=== PATIENT | male | born 1970 | race Caucasian/White ===

== ENCOUNTER → 2020-05-28 13:21 | Outpatient (BNVA) | payer OTHER, SELFPAY | PROVIDERS: Visit Provider Physician Assistant Medical | DX: I10 Essential (primary) hypertension (principal); R07.9 Chest pain, unspecified | CPT/HCPCS: 99213 ==

== ENCOUNTER → 2022-09-11 15:12 | Outpatient (BNVA) | payer OTHER, SELFPAY | PROVIDERS: Visit Provider Physician Assistant Medical | DX: S16.1XXA Strain of muscle, fascia and tendon at neck level, initial encounter (principal); Y04.2XXA Assault by strike against or bumped into by another person, initial encounter | CPT/HCPCS: 72040; 99203 ==

== ENCOUNTER → 2022-09-14 08:31 | Outpatient (BNVA) | payer OTHER, SELFPAY | PROVIDERS: Visit Provider Internal Medicine | DX: S16.1XXD Strain of muscle, fascia and tendon at neck level, subsequent encounter (principal); X58.XXXD Exposure to other specified factors, subsequent encounter | CPT/HCPCS: 99213 ==

== ENCOUNTER 2024-07-15 20:59 | Emergency (ER) | payer BC, SELFPAY ==
--- NOTE | 2024-07-15 | ECG_ITS ---
Test Reason : CHEST PAIN Blood Pressure : / mmHG Vent. Rate : 069 BPM Atrial Rate : 069 BPM P-R Int : 162 ms QRS Dur : 094 ms QT Int : 422 ms P-R-T Axes : 040 010 034 degrees QTc Int : 452 ms Normal sinus rhythm Normal ECG No previous ECGs available Referred By: Generic ED Physician Electronically Signed By:ALEXANDRU MORRIS MD
[2024-07-15 21:10] VITALS: BP 160/98; PULSE 66; RESP 16; TEMP 36.4; O2SAT 99; BMI 36.1
--- NOTE | 2024-07-15 21:20 | ED_ITS ---
HPI - Chest Pain General Chief Complaint: Chest Pain Stated Complaint: Chest pain Time Seen by Provider: 07/15/24 21:20 Source: patient Mode of arrival: ambulatory Limitations: no limitations History of Present Illness ED Provider: HPI narrative: Patient is 54 years old with history of hypotension no known coronary artery disease comes here for pain in the left side of the neck jaw and left arm started at 17:00 when he was coking lasted about 15-20 minutes with diaphoresis was very uneasy at that time then again around 21:00 patient is started having the pain again just prior to arrival with lasted about same time with cold sweats no pain at this time patient's blood pressure noted to be elevated to 160/98 no shortness a breath patient has never had similar pain in the past Related Data Allergies Allergy/AdvReac Type Severity Reaction Status Date / Time No Known Allergies Allergy Unverified 04/01/20 15:19 Hayfever Allergy Unknown Cough Uncoded 07/15/24 21:13 Review of Systems 2 Review of Systems: Yes all other systems are reviewed and are negative [facility] Past Medical History Medical History (Updated 07/16/24 @ 00:44 by Kamron Kathleen MD) Hypertension Social History Social History Smoked in Last 30 Days: No Use of substances other than those prescribed or required for medical reasons: No Advance Directives: No Advance Directives Information Provided: No Physical Exam 2 Vital Signs: Vital Signs: Last Vital Signs Temp 98.6 F 07/16/24 01:00 Pulse 71 07/16/24 01:00 Resp 16 07/16/24 01:00 BP 131/87 07/16/24 01:00 Pulse Ox 98 07/16/24 01:00 O2 Del Method Room Air 07/16/24 01:00 BMI result Body Mass Index 36.1 Appearance: Alert. Oriented X3. No acute distress. Eyes: No pallor or icterus ENT: Pharynx normal. Oral Mucosa moist Neck: Normal inspection. Neck supple. CVS: Normal heart rate and rhythm. Pulses normal. Respiratory: No respiratory distress. Equal air entry bilateral, no wheezing/rales/rhonchi Abdomen: Soft and nontender. Bowel sounds are present, no mass palpable, no CVA tenderness Skin: Skin warm and dry. Normal skin color. Normal skin turgor. Extremities: No lower extremity edema. No calf tenderness Neuro: Oriented X 3. No motor deficit. No sensory deficit.No cerebellar signs , cranial nerves II-XII intact Medications Administered Discontinued Medications Generic Name Dose Route Start Last Admin Trade Name Yousuf PRN Reason Stop Dose Admin Aspirin 162 mg 07/15/24 21:23 07/15/24 21:53 Aspirin 81 Mg Tab.Chew PO 07/15/24 21:24 162 mg ONCE ONE Administration Nitroglycerin 1 inch 07/15/24 21:23 07/15/24 21:53 Nitroglycerin 2 % Oint 1 Gm Packet TRANSDERMA 07/15/24 21:24 1 inch ONCE ONE Administration Medical Decision Making Medical Decision Making [facility] Narrative: Patient with left arm left side of the neck pain with history of hypertension etiology is not clear 2 sets of cardiac enzymes negative EKG without ischemic changes ACS ruled out in the ER patient advised to take baby aspirin and follow with clinical services assistant for further evaluation including stress test Differential Diagnosis Differential Diagnoses: The differential diagnosis associated with the presentation includes Lab Data [facility] Lab Attestation statement: I reviewed the patient's lab results. 07/15/24 21:46 07/15/24 21:46 Labs: Lab Results 07/15/24 07/16/24 Range/Units 21:46 00:01 WBC 8.4 (4.8-10.8) X10*3/uL RBC 4.39 L (4.60-5.80) X10*6/uL Hgb 14.5 (14.0-18.0) g/dl Hct 39.1 L (42.0-52.0) % MCV 89.1 (80.0-98.0) fL MCH 33.0 (27.0-33.0) pg MCHC 37.1 H (31.0-36.0) g/dl RDW 11.6 (11.0-16.0) % Plt Count 203 (160-400) X10*3/uL MPV 8.7 L (9.4-12.4) fL Absolute Nucleated RBC 0.000 (0.0-0.012) X10*3/uL Nucleated RBC % (auto) 0.0 (0.0-0.2) /100WBC PT 11.2 (10.9-12.4) SEC INR 1.0 (0.9-1.1) APTT 32.2 (26.0-36.8) SEC Sodium 140 (135-145) mmol/L Potassium 3.9 (3.3-5.1) mmol/L Chloride 105 (96-108) mmol/L Carbon Dioxide 24 (22-29) mmol/L Anion Gap 15 (12-20) BUN 21 H (9-16) mg/dL Creatinine 0.97 (0.5-1.4) mg/dL Estim Creat Clear Calc 111.4 Estimated GFR > 60 Random Glucose 122 H (60-115) mg/dL Calcium 9.2 (8.4-10.2) mg/dL Total Bilirubin 0.4 (0.0-1.0) mg/dL AST 27 (5-37) U/L ALT 30 (0-40) U/L Alkaline Phosphatase 84 (39-117) U/L Troponin I High Sens < 2.7 < 2.7 (<3.5-35.0) ng/L Total Protein 7.2 (6.5-8.0) g/dL Albumin 4.2 (3.5-5.0) g/dL Independent Interpretation I performed an independent interpretation of an: EKG Interpretation: Normal sinus rhythm heart rate 69 beats per minute normal intervals normal axis no acute ST-T changes no acute ischemia Discharge Plan Discharge Clinical Impression: Chest pain Patient Disposition: Home, Self-Care Instructions: Chest Pain (ED) Additional Instructions: Cause of your pain in the left side of the neck and left arm is not clear Possible acute coronary syndrome Your cardiac enzymes are negative Follow up with PCP further evaluation including stress test Continue medication for hypertension Report to the ER if recurrence of the pain Take baby aspirin daily Referrals: Angel Salgado MD [Physician] - 1 week Interventions: ED Discharge Assessment Last Done: 07/16/24 01:00 Discharge Date/Time: 07/16/24 01:09 Print Language: German
[2024-07-15 21:21] VITALS: BP 168/95; PULSE 60; RESP 16; TEMP 36.6; O2SAT 97
[2024-07-15 21:53] LABS: Hematocrit 39.1 % (42.0-52.0); Hemoglobin 14.5 g/dl (14.0-18.0); Mean Corpuscular HGB Conc 37.1 g/dl (31.0-36.0); Mean Corpuscular Volume 89.1 fL (80.0-98.0); Mean Platelet Volume 8.7 fL (9.4-12.4); Platelet Count 203 X10*3/uL (160-400); Red Blood Count 4.39 X10*6/uL (4.60-5.80); Red Cell Distribution Width 11.6 % (11.0-16.0); White Blood Count 8.4 X10*3/uL (4.8-10.8)
[2024-07-15] MEDS: Aspirin 81 MG TAB.CHEW 162 MG PO (21:53)
[2024-07-15] MEDS: Nitroglycerin 2 % Oint 1 GM Packet 1 INCH TRANSDERMA (21:53)
--- NOTE | 2024-07-15 21:58 | PC.NURSE ---
Iv placed in left AC 20, medicated per mar, pt change into hospital attire, placed on bed side monitor.
[2024-07-15 22:12] LABS: Alanine Aminotransferase 30 U/L (0-40); Albumin Level 4.2 g/dL (3.5-5.0); Alkaline Phosphatase 84 U/L (39-117); Anion Gap 15 (12-20); Aspartate Amino Transferase 27 U/L (5-37); Bilirubin Total 0.4 mg/dL (0.0-1.0); Blood Urea Nitrogen 21 mg/dL (9-16); Calcium 9.2 mg/dL (8.4-10.2); Carbon Dioxide 24 mmol/L (22-29); Chloride 105 mmol/L (96-108); Creatinine Clr Calc Pharmacy 111.4; Estimated Glomerular Filt Rate > 60; Glucose Random 122 mg/dL (60-115); Potassium 3.9 mmol/L (3.3-5.1); Sodium 140 mmol/L (135-145); Total Protein 7.2 g/dL (6.5-8.0)
[2024-07-15 22:21] LABS: Troponin-I High Sensitivity < 2.7 ng/L (<3.5-35.0)
[2024-07-15 22:28] LABS: Prothrombin Time 11.2 SEC (10.9-12.4)
[2024-07-15 22:30] LABS: Partial Thromboplastin Time 32.2 SEC (26.0-36.8)
[2024-07-16] VITALS: BP 131/87; PULSE 68; RESP 16; TEMP 36.7; O2SAT 97
[2024-07-16 00:27] LABS: Troponin-I High Sensitivity < 2.7 ng/L (<3.5-35.0)
[2024-07-16 01:00] VITALS: BP 131/87; BP 137/75; PULSE 65; PULSE 71; RESP 15; RESP 16; TEMP 36.6; TEMP 37; O2SAT 97; O2SAT 98
== END 2024-07-16 01:09 | disposition home or self-care (01) ==
PROVIDERS: Emergency Provider Internal Medicine; PCP Physician Assistant
DX: R07.89 Other chest pain (principal); M54.2 Cervicalgia; R68.84 Jaw pain; M79.602 Pain in left arm; Z79.899 Other long term (current) drug therapy
CPT/HCPCS: 36415; 80053; 84484; 85027; 85610; 85730; 93005; 99283; 99285

== ENCOUNTER → 2024-07-15 21:05 | Outpatient (BNV) | payer BC, SELFPAY | PROVIDERS: Emergency Provider Internal Medicine; PCP Physician Assistant; Visit Provider Internal Medicine Cardiovascular Disease | DX: R07.9 Chest pain, unspecified (principal) | CPT/HCPCS: 93010 ==

== ENCOUNTER 2024-08-15 16:45 | Emergency (ER) | payer BC, SELFPAY ==
--- NOTE | ~2024-08-15 | CT_ITS ---
CLINICAL HISTORY: CP, NEGRO progressing CT angiography chest with contrast. MIP Postprocessing. Comparison: CR - XR CHEST 2V - 08/15/24 17:26 EST Findings: Thoracic aorta is of normal caliber without dissection or aneurysmal dilatation. No significant ulcerative plaquing. Conventional great vessel anatomy. Central pulmonary arteries are patent. Overall heart size is within normal limits. No enlarged lymph nodes. Lungs are clear. No pleural effusion or pneumothorax. No free fluid or free air within the upper abdomen. No acute fracture. IMPRESSION: Negative CT angiogram of the aorta. This document has been electronically signed by: Dewayne De Jesus MD on 08/15/2024 21:35:40
--- NOTE | ~2024-08-15 | XR_ITS ---
CLINICAL HISTORY: chest pain 2 view chest x-ray Comparison: None Findings: No consolidation or effusion. Heart size is normal. No acute fracture. IMPRESSION: 1. No acute findings. This document has been electronically signed by: Dewayne De Jesus MD on 08/15/2024 17:56:41
--- NOTE | 2024-08-15 16:46 | ECG_ITS ---
Test Reason : chest pain Blood Pressure : */* mmHG Vent. Rate : 78 BPM Atrial Rate : 78 BPM P-R Int : 156 ms QRS Dur : 88 ms QT Int : 384 ms P-R-T Axes : 40 4 34 degrees QTcB Int : 437 ms Normal sinus rhythm Nonspecific ST abnormality Abnormal ECG When compared with ECG of 15-Jul-2024 21:05, No significant change was found Referred By: Jasmyn Nieto Electronically Signed By: NEDRA GUSTAFSON
[2024-08-15 16:54] VITALS: BP 170/93; PULSE 76; RESP 18; TEMP 37; O2SAT 95; BMI 38.3
--- NOTE | 2024-08-15 16:57 | ED_ITS ---
HPI - Chest Pain General Chief Complaint: Chest Pain Stated Complaint: Chest pain Time Seen by Provider: 08/15/24 18:51 Source: patient Limitations: no limitations History of Present Illness ED Provider: Darlene Alatorre PA-C HPI narrative: 54-year-old male with a history of hypertension presents with intermittent chest pain since the end of June. Patient states he will randomly have episodes of severe central chest discomfort, described as ?something is sitting in the middle of my chest?. When patient developed symptoms, he becomes nauseous and diaphoretic. The discomfort is transient, not provoked by exertion. Denies concurrent shortness of breath, new dyspnea with exertion, recent cough or cold symptoms, fever. Denies unilateral calf pain or swelling, hemoptysis, recent surgery, recent travel, any period of recent immobility. Patient states he had a negative cardiac workup new year's Lynn, he has follow up with Cardiology that is pending. Patient also had negative stress tests, he has yet to have a cardiac catheterization. Related Data Allergies Allergy/AdvReac Type Severity Reaction Status Date / Time No Known Allergies Allergy Verified 08/15/24 16:55 Hayfever Allergy Unknown Cough Uncoded 07/15/24 21:13 Review of Systems 2 Review of Systems: Yes all other systems are reviewed and are negative Constitutional: Constitutional: Denies fatigue, Denies fever(s) and Denies headache(s) ENT: Denies headache(s) Cardiovascular: Cardiovascular: Reports chest pain and Denies dyspnea Respiratory: Respiratory: Denies cough and Denies dyspnea Gastrointestinal: Gastrointestinal: Reports nausea and Denies vomiting Integumentary/Breasts: Skin/Breast: Reports other (Diaphoresis) Neurologic: Denies headache(s) Endocrine: Endocrine: Denies fatigue PMFSH Past Medical History Attestation statement: The following information was validated with the patient. Medical History (Updated 08/17/24 @ 00:00 by Background Daemon) Hypertension Social History Social History Smoked in Last 30 Days: No Use of substances other than those prescribed or required for medical reasons: No Advance Directives: No Advance Directives Information Provided: No Physical Exam 2 Vital Signs: Vital Signs: Last Vital Signs Temp 98.1 F 08/16/24 00:17 Pulse 64 08/16/24 00:17 Resp 15 08/16/24 00:17 BP 164/107 H 08/16/24 00:17 Pulse Ox 95 08/16/24 00:17 O2 Del Method Room Air 08/16/24 00:17 BMI result Body Mass Index 38.3 Const: Other: Alert well-appearing Orientation/consciousness: patient oriented x3 Resp: Effort & Inspection: normal respiratory effort Cardio: Other: Normal peripheral perfusion Skin: Other: Warm dry no rash Neuro: General: patient oriented x3, gait normal, no focal motor deficits and CN's II-XI intact bilaterally Psych: Other: Cooperative Course Course Course Narrative: This is a rapid medical exam. Defer additional HPI, ROS, PE to primary provider. 54 yo male with history of HTN here with chest pain since 07/15. Follow up with PCP since ER visit. Intermittent chest pain since then. Will obtain labs, EKG, CXR JER -Dusty Nieto APRN Reevaluation(s) Reevaluation #1: Attending note: I saw the patient and examined the patient. There does not seem to be a family history of early coronary disease. Troponins are flat. My interpretation of his description of his symptoms is that they are not highly consistent with an acute coronary syndrome. I think he may be discharged to follow up as he has been previously referred. Dr. Phoenix Medications Administered Discontinued Medications Generic Name Dose Route Start Last Admin Trade Name Freq PRN Reason Stop Dose Admin Iohexol 70 ml 08/15/24 21:13 08/15/24 21:14 Iohexol 350 Mg/Ml 100 Ml Infus..Btl IV 08/15/24 21:14 70 ml ONCE ONE Administration Medical Decision Making Medical Decision Making [facility] Narrative: 54-year-old male with a history of hypertension presents with intermittent chest pain since the end of June. Patient states he will randomly have episodes of severe central chest discomfort, described as ?something is sitting in the middle of my chest?. When patient developed symptoms, he becomes nauseous and diaphoretic. The discomfort is transient, not provoked by exertion. Denies concurrent shortness of breath, new dyspnea with exertion, recent cough or cold symptoms, fever. Denies unilateral calf pain or swelling, hemoptysis, recent surgery, recent travel, any period of recent immobility. Patient states he had a negative cardiac workup new year's Lynn, he has follow up with Cardiology that is pending. Patient also had negative stress tests, he has yet to have a cardiac catheterization. Problem: Hypertension History: Per patient I have considered the following differential diagnoses: ACS, new heart failure, PE, costochondritis, viral syndrome, pneumonia, anxiety/panic attack, GERD Plan: ACS considered, this is a concerning story. It is reassuring that he had negative stress tests, his 1st troponin is negative, he has some nonspecific changes on the EKG, however unchanged from a month ago. Given that his story is concerning, I am going to obtain an angiogram of the chest with the hope to view the coronary arteries. I do not think this is PE, he has no objective evidence of DVT on exam, he is not hypoxic, the pain is not pleuritic any is not short of breath. Do not think this is new heart failure, he does not appear volume overloaded on exam, again he is not short of breath he is not hypoxic, he has no dyspnea on exertion, chest x-ray clear, adding a BNP. The patient has not had recent cough or cold symptoms to suggest costochondritis/PNA. This also is not consistent with anxiety or panic attack, he has no history of anxiety, his symptoms present randomly. This could be really poorly controlled acid reflux given central discomfort. I have independently reviewed the following tests: Labs: No leukocytosis, not anemic, no electrolyte abnormality, troponin negative x2, BNP 42 EKG 1. Normal sinus rhythm, rate of 78, nonspecific ST abnormality however unchanged from June of 2024, no active ischemic changes, no ectopy, QTC 437 EKG 2. Sinus Tulio, rate of 59, no ischemic changes no ectopy Chest x-ray:Findings: No consolidation or effusion. Heart size is normal. No acute fracture. IMPRESSION: 1. No acute findings. This document has been electronically signed by: Dewayne De Jesus MD on 08/15/2024 17:56:41 CTA chest: Findings: Thoracic aorta is of normal caliber without dissection or aneurysmal dilatation. No significant ulcerative plaquing. Conventional great vessel anatomy. Central pulmonary arteries are patent. Overall heart size is within normal limits. No enlarged lymph nodes. Lungs are clear. No pleural effusion or pneumothorax. No free fluid or free air within the upper abdomen. No acute fracture. IMPRESSION: Negative CT angiogram of the aorta. This document has been electronically signed by: Dewayne De Jesus MD on 08/15/2024 21:35:40 Lab Data 08/15/24 17:18 08/15/24 17:18 Labs: Lab Results 08/15/24 08/15/24 Range/Units 17:18 20:02 WBC 6.6 (4.8-10.8) X10*3/uL RBC 4.29 L (4.60-5.80) X10*6/uL Hgb 14.2 (14.0-18.0) g/dl Hct 38.9 L (42.0-52.0) % MCV 90.7 (80.0-98.0) fL MCH 33.1 H (27.0-33.0) pg MCHC 36.5 H (31.0-36.0) g/dl RDW 12.3 (11.0-16.0) % Plt Count 208 (160-400) X10*3/uL MPV 9.0 L (9.4-12.4) fL Immature Gran % (Auto) 0.3 (0.0-0.4) % Neut % (Auto) 51.5 (45-73) % Lymph % (Auto) 36.3 (20-40) % [place] % (Auto) 8.2 (2-11) % Eos % (Auto) 3.2 (0-4) % Baso % (Auto) 0.5 (0-2) % Lymph # (Auto) 2.4 (1.2-4.9) X10*3/uL [place] # (Auto) 0.5 (0.1-1.2) X10*3/uL Eos # (Auto) 0.2 (0.0-0.4) X10*3/uL Baso # (Auto) 0.0 (0.0-0.2) X10*3/uL Abs Immat Gran (auto) 0.02 (0.00-0.03) X10*3/uL Absolute Neuts (auto) 3.4 (2.0-8.3) x10*3/uL Absolute Nucleated RBC 0.000 (0.0-0.012) X10*3/uL Nucleated RBC % (auto) 0.0 (0.0-0.2) /100WBC PT 11.2 (10.9-12.4) SEC INR 1.0 (0.9-1.1) Sodium 140 (135-145) mmol/L Potassium 3.9 (3.3-5.1) mmol/L Chloride 108 (96-108) mmol/L Carbon Dioxide 21 L (22-29) mmol/L Anion Gap 15 (12-20) BUN 20 H (9-16) mg/dL Creatinine 1.18 (0.5-1.4) mg/dL Estim Creat Clear Calc 94.4 Estimated GFR > 60 Random Glucose 197 H (60-115) mg/dL Calcium 9.2 (8.4-10.2) mg/dL Total Bilirubin 0.3 (0.0-1.0) mg/dL Direct Bilirubin 0.1 (0.0-0.5) mg/dL AST 27 (5-37) U/L ALT 33 (0-40) U/L Alkaline Phosphatase 81 (39-117) U/L Troponin I High Sens < 2.7 < 2.7 (<3.5-35.0) ng/L B-Natriuretic Peptide 42 (<100) pg/mL Total Protein 7.4 (6.5-8.0) g/dL Albumin 4.1 (3.5-5.0) g/dL Discharge Plan Discharge Clinical Impression: Chest pain Patient Disposition: Home, Self-Care Instructions: Chest Pain (ED) Additional Instructions: All of your screening labs including 2 cardiac enzymes were normal. There were no concerning changes on your EKGs and the chest x-ray is clear. The CT angio of the aorta was completely normal. Keep your pending follow up with your ethernet network architect. Interventions: ED Discharge Assessment Last Done: 08/16/24 00:17 Discharge Date/Time: 08/16/24 00:18 Print Language: Khmer
[2024-08-15 17:21] LABS: MANUAL DIFF FLAG NO
[2024-08-15 17:25] LABS: Basophils Percent Auto 0.5 % (0-2); Eosinophils Absolute Auto 0.2 X10*3/uL (0.0-0.4); Eosinophils Percent Auto 3.2 % (0-4); Hematocrit 38.9 % (42.0-52.0); Hemoglobin 14.2 g/dl (14.0-18.0); Imm Gran Abs Auto 0.02 X10*3/uL (0.00-0.03); Imm Gran Pct Auto 0.3 % (0.0-0.4); Lymphocytes Absolute Auto 2.4 X10*3/uL (1.2-4.9); Lymphocytes Percent Auto 36.3 % (20-40); Mean Corpuscular HGB Conc 36.5 g/dl (31.0-36.0); Mean Corpuscular Hemoglobin 33.1 pg (27.0-33.0); Mean Corpuscular Volume 90.7 fL (80.0-98.0); Monocytes Absolute Auto 0.5 X10*3/uL (0.1-1.2); Monocytes Percent Auto 8.2 % (2-11); Neutrophils Absolute Auto 3.4 x10*3/uL (2.0-8.3); Neutrophils Percent Auto 51.5 % (45-73); Platelet Count 208 X10*3/uL (160-400); Red Blood Count 4.29 X10*6/uL (4.60-5.80); Red Cell Distribution Width 12.3 % (11.0-16.0); White Blood Count 6.6 X10*3/uL (4.8-10.8)
[2024-08-15 17:42] LABS: Prothrombin Time 11.2 SEC (10.9-12.4)
[2024-08-15 17:48] LABS: Alanine Aminotransferase 33 U/L (0-40); Albumin Level 4.1 g/dL (3.5-5.0); Alkaline Phosphatase 81 U/L (39-117); Anion Gap 15 (12-20); Aspartate Amino Transferase 27 U/L (5-37); Bilirubin Direct 0.1 mg/dL (0.0-0.5); Bilirubin Total 0.3 mg/dL (0.0-1.0); Blood Urea Nitrogen 20 mg/dL (9-16); Calcium 9.2 mg/dL (8.4-10.2); Carbon Dioxide 21 mmol/L (22-29); Chloride 108 mmol/L (96-108); Creatinine Clr Calc Pharmacy 94.4; Estimated Glomerular Filt Rate > 60; Glucose Random 197 mg/dL (60-115); Potassium 3.9 mmol/L (3.3-5.1); Sodium 140 mmol/L (135-145); Total Protein 7.4 g/dL (6.5-8.0)
[2024-08-15 17:49] LABS: Troponin-I High Sensitivity < 2.7 ng/L (<3.5-35.0)
[2024-08-15 19:18] VITALS: BP 166/98; PULSE 68; RESP 18; TEMP 37.1; O2SAT 96
--- OUTSIDE RECORDS SUMMARY | 2024-08-15 19:25 | XMS_ITS | Continuity of Care Document ---
Author Organization [facility] [employer] Address [address] [place] [address]- Care Team Providers Care Educational Speech Language Clinician Name Role Phone Marisa Yang Primary Care Physician Encounter [facility] [place] [facility] [id number] Date(s): 07/03/24 - 08/02/24 [facility] Adult [address] [place] [address]- Encounter Type: Triage Allergies, Adverse Reactions, Alerts Substance Criticality Severity Reaction Reaction Severity Status Definity 1 Active CARRILLO inhibitors cough Activ e 1Hoarsness/Numbness of lower jaw/Tingling of tongue Immunizations Given and Recorded Vaccine Date Status Refusal Reason SARS-CoV-2 (COVID-19) mRNA BNT-162b2 vac 08/06/20 Recorded SARS-CoV-2 (COVID-19) mRNA BNT-162b2 vac 08/05/20 Recorded SARS-CoV-2 (COVID-19) mRNA BNT-162b2 vac 07/15/20 Recorded SARS-CoV-2 (COVID-19) mRNA-1273 vaccine 07/14/20 R ecorded tetanus-diphtheria toxoids (Td) 07/16/12 Recorded Medications Calcium and magnesium supplement Calcium and magnesium supplement, Refills 0, Maintenance, 05/04/21 12:07:00 PM EDT, Supply Start Date: 05/04/21 Status: Ordered Repeat number: 1 carvedilol 12.5 mg oral tablet 1, tablet, By Mouth, 2 times a day, # 180 tablet, Refills 0, Maintenance, 07/03/24 4:08:00 PM EST, Route to Pharmacy Electronically, [id number], 177.5, cm, 06/11/23 7:49:00 EST, Height Start Date: 07/03/24 Status: Ordered Quantity: 180.0 Unit: tablet Repeat number: 1 Fish Oil By Mouth, 0 Refills, Maintenance, 05/04/21 12:05:00 PM EDT, Partial fill upon patient request if the prescription is for a schedule II opioid drug. Start Date: 05/04/21 Status: Ordered Repeat number: 1 losartan 50 mg oral tablet 1 tablet, By Mouth, Daily, # 90 tablet, 2 Refills, Maintenance, 04/25/24 2:03:00 PM EDT, [id number], 177.5, cm, 06/11/23 7:49:00 EST, Height Start Date: 04/25/24 Status: Ordered Quantity: 90.0 Unit: tablet Repeat number: 1 Multivitamin Daily, 0 Refills, Maintenance, 05/04/21 12:05:00 PM EDT, Partial fill upon patient request if the prescription is for a schedule II opioid drug. Start Date: 05/04/21 Status: Ordered Repeat number: 1 Vitamin D3 oral tablet 1 tablet = 10 mcg, By Mouth, Daily, 0 Refills, Maintenance, 05/04/21 12:06:00 PM EDT, Partial fill upon patient request if the prescription is for a schedule II opioid drug. Start Date: 05/04/21 Status: Ordered Repeat number: 1 Zepbound 2.5 mg/0.5 mL subcutaneous solution = 2.5 mg, Subcutaneous Injection, Every week, rotate injection sites, # 4 each, 0 Refills, Maintenance, 07/21/24 8:21:00 AM EST, Solution, [facility]/pharmacy #[id number], Partial fill upon patient request if the prescription is for a schedule II opioid drug., 177.5, cm, 07/21/24 7:08:00 EST, Height Start Date: 07/21/24 Status: Ordered Quantity: 4.0 Unit: each Repeat number: 1 Problem List Condition Confirmation Course Effective Dates Status Health St atus Informant Hypertension Confirmed Active Palpitations Confirmed Active Severe obesity (BMI 35.0-39.9) with comorbidity Confirmed Active Social History Social History Type Response Smoking Status Never (less than 100 in lifetime);Former smoker, quit more than 30 days ago; Use: Quit 30 years ago; Type: Cigarettes entered on: 01/19/23 Sex Sex Representation Male (finding) Patient Care team information Care Team Personnel Name: Marisa Yang Position: S PCO Associate Professional Member Role: PCP Address: [address] [place] [id number] Telecom: Care Team Related Persons Name: AURELIANO NIEVES Name: SHANE LIN Name: OLINDA HENSON Insurance Providers Guarantor name: MARK ANTHONY [facility] Plan Information #: 1 Payer: HMO [employer] Member Number: NA Policy Number: NA Group Number: NA
[2024-08-15 20:36] LABS: B Type Natriuretic Peptide 42 pg/mL (<100)
[2024-08-15 20:37] LABS: Troponin-I High Sensitivity < 2.7 ng/L (<3.5-35.0)
[2024-08-15 21:06] VITALS: BP 173/113; PULSE 71; RESP 16; TEMP 36.8; O2SAT 98
[2024-08-15] MEDS: iohexoL 350 MG/ML 100 ML INFUS..BTL 70 ML IV (21:14)
[2024-08-15 23:00] VITALS: BP 167/116; PULSE 68; RESP 12; TEMP 36.9; O2SAT 98
--- NOTE | 2024-08-15 23:34 | ECG_ITS ---
Test Reason : REPEAT Blood Pressure : */* mmHG Vent. Rate : 59 BPM Atrial Rate : 59 BPM P-R Int : 166 ms QRS Dur : 88 ms QT Int : 448 ms P-R-T Axes : 34 16 20 degrees QTcB Int : 443 ms Sinus bradycardia Otherwise normal ECG When compared with ECG of 15-Aug-2024 16:51, No significant change was found Referred By: Jared Phoenix Electronically Signed By: NEDRA GUSTAFSON
[2024-08-15 23:54] VITALS: BP 164/107; PULSE 64; RESP 15; TEMP 36.7; O2SAT 95
[2024-08-16 00:17] VITALS: BP 164/107; PULSE 64; RESP 15; TEMP 36.7; O2SAT 95
== END 2024-08-16 00:18 | disposition home or self-care (01) ==
PROVIDERS: Nurse Practitioner Family; Physician Assistant Medical; Emergency Provider Emergency Medicine; PCP Physician Assistant
DX: R07.89 Other chest pain (principal); R11.0 Nausea; R00.1 Bradycardia, unspecified; R06.02 Shortness of breath; Z79.899 Other long term (current) drug therapy
CPT/HCPCS: 36415; 71046; 71275; 80048; 80076; 83880; 84484; 85025; 85610; 93005; 99284; Q9967

== ENCOUNTER → 2024-08-15 16:46 | Outpatient (BNV) | payer BC, SELFPAY | PROVIDERS: Emergency Provider Emergency Medicine; PCP Physician Assistant; Visit Provider Internal Medicine | DX: R07.9 Chest pain, unspecified (principal); R00.1 Bradycardia, unspecified | CPT/HCPCS: 93010 ==

== ENCOUNTER → 2024-08-15 16:59 | Outpatient (BNV) | payer BC, SELFPAY | PROVIDERS: PCP Physician Assistant; Visit Provider Radiology Diagnostic Radiology | DX: R07.9 Chest pain, unspecified (principal) | CPT/HCPCS: 71046; 71275 ==